=== PATIENT | male | born 1950 | race Caucasian/White ===

== ENCOUNTER → 2020-02-21 11:00 | Outpatient (BNVA) | payer MEDICARE, MEDICAID, SELFPAY | PROVIDERS: Family Provider Family Medicine; PCP Family Medicine; Visit Provider Nurse Practitioner Family | DX: I10 Essential (primary) hypertension (principal); Z68.42 Body mass index [BMI] 45.0-49.9, adult; E83.51 Hypocalcemia; E78.2 Mixed hyperlipidemia | CPT/HCPCS: 80053; 80061; 84439; 84443 ==

== ENCOUNTER → 2020-02-23 13:37 | Outpatient (BNVA) | payer MEDICARE, MEDICAID, SELFPAY | PROVIDERS: Family Provider Family Medicine; PCP Family Medicine; Visit Provider Nurse Practitioner Family | DX: E11.9 Type 2 diabetes mellitus without complications (principal); Z68.42 Body mass index [BMI] 45.0-49.9, adult | CPT/HCPCS: 83036 ==

== ENCOUNTER → 2021-03-07 15:16 | Outpatient (BNVA) | payer MEDICARE, MEDICAID, SELFPAY | PROVIDERS: Family Provider Family Medicine; PCP Family Medicine Adult Medicine; Visit Provider Family Medicine Adult Medicine | DX: Z00.00 Encounter for general adult medical examination without abnormal findings (principal); L98.499 Non-pressure chronic ulcer of skin of other sites with unspecified severity; I10 Essential (primary) hypertension; Z68.42 Body mass index [BMI] 45.0-49.9, adult; E11.9 Type 2 diabetes mellitus without complications; I25.10 Atherosclerotic heart disease of native coronary artery without angina pectoris; L40.9 Psoriasis, unspecified | CPT/HCPCS: 80053; 83036; 85025; 88304; G0103 ==

== ENCOUNTER → 2021-04-22 08:52 | Outpatient (BNVA) | payer MEDICARE, MEDICAID, SELFPAY | PROVIDERS: Family Provider Family Medicine; PCP Family Medicine Adult Medicine; Referring Provider Family Medicine Adult Medicine; Visit Provider Urology | DX: R97.20 Elevated prostate specific antigen [PSA] (principal) | CPT/HCPCS: 81003; 84153 ==

== ENCOUNTER → 2021-09-19 15:23 | Outpatient (BNVA) | payer MEDICARE, MEDICAID, SELFPAY | PROVIDERS: Family Provider Family Medicine; PCP Family Medicine Adult Medicine; Visit Provider Family Medicine Adult Medicine | DX: D49.2 Neoplasm of unspecified behavior of bone, soft tissue, and skin (principal) | CPT/HCPCS: 88304 ==

== ENCOUNTER → 2021-10-22 13:08 | Outpatient (BNVA) | payer MEDICARE, MEDICAID, SELFPAY | PROVIDERS: Family Provider Family Medicine; PCP Family Medicine Adult Medicine; Visit Provider Urology | DX: R97.20 Elevated prostate specific antigen [PSA] (principal); G43.909 Migraine, unspecified, not intractable, without status migrainosus | CPT/HCPCS: 81003; 84153 ==

== ENCOUNTER 2022-03-31 13:10 | Outpatient (CLI) | payer MEDICARE, MEDICAID, SELFPAY ==
[2022-03-31 14:18] LABS: Prostate Specific AG Urology 5.14 ng/mL (0-4)
== END 2022-03-31 13:11 | disposition home or self-care (01) ==
LOC: LAB 13:13
PROVIDERS: PCP Family Medicine Adult Medicine; Visit Provider Urology
DX: R97.20 Elevated prostate specific antigen [PSA] (principal)
CPT/HCPCS: 36415; 81003; 84153; 99213

== ENCOUNTER → 2023-02-10 14:50 | Outpatient (BNVA) | payer MEDICARE, MEDICAID, SELFPAY | PROVIDERS: PCP Family Medicine Adult Medicine; Visit Provider Family Medicine Adult Medicine | DX: E11.69 Type 2 diabetes mellitus with other specified complication (principal); E78.5 Hyperlipidemia, unspecified; E11.9 Type 2 diabetes mellitus without complications; Z13.9 Encounter for screening, unspecified; I25.10 Atherosclerotic heart disease of native coronary artery without angina pectoris | CPT/HCPCS: 80053; 83036; 84153 ==

== ENCOUNTER 2023-04-17 11:34 | Observation (INO) | payer MEDICARE, MEDICAID, SELFPAY ==
[2023-04-17] VITALS (7 sets, daily range): BP systolic 139–181; BP diastolic 82–90; PULSE 39–63; RESP 16–20; TEMP 36.5–36.9; O2SAT 94–100; BMI 34.7
--- NOTE | 2023-04-17 11:45 | ECG_ITS ---
[facility] Test Date: 2023-04-17 Pat Name: Femi Huffman Department: Room: Gender: Male [employer]: : 1950 Requested By: Ole Carrizales Order Number: [id number] Miley MD: Sabine Gomez M.D. Measurements Intervals [place] Rate: 60 P: 240 TX: 298 QRS: -69 QRSD: 130 T: 1 QT: 411 QTc: 411 Interpretive Statements SINUS RHYTHM WITH FIRST DEGREE AV BLOCK RIGHT BUNDLE BRANCH BLOCK [120+ ms QRS DURATION, UPRIGHT V1, 40+ ms S IN I/aVL/V4/V5/V6] POSSIBLE ANTERIOR MYOCARDIAL INFARCTION , PROBABLY OLD [30 ms Q WAVE IN V3/V4, OR R < 0.2 mV IN V4] INFERIOR MYOCARDIAL INFARCTION , PROBABLY OLD [40+ ms Q WAVE AND/OR ST/T ABNORMALITY IN II/aVF] Compared to ECG 11/17/2014 14:35:03 Right bundle-branch block now present Myocardial infarct finding now present Left-axis deviation no longer present T-wave abnormality no longer present Electronically Signed On 04-17-2023 18:54:44 CDT by Sabine Gomez M.D. [id number]
--- NOTE | 2023-04-17 11:45 | CT_ITS ---
WS: [id number] CT HEAD NONCONTRAST HISTORY: Symptoms of acute stroke TECHNIQUE: Contiguous axial imaging performed through the brain in 2.5 mm imaging. Bone and soft tiss ue windows. Sagittal and coronal reformats reviewed. All CT scans at [facility] use at least one of these dose optimization techniques: automated exposure control; mA and/or kV adjustment per pa tient size (includes targeted exams where dose is matched to clinical indication); or iterative recon struction. DLP: 1184.78 mGy COMPARISON: None available. No acute intracranial hemorrhage, midline shift or mass effect. Mild atrophy and small vessel ischemic disease. Focal area of very subtle loss of the [place] er differentiation involving the cortex of the posterior RIGHT frontal lobe. Ventricles: Normal size with no hydrocephalus. Paranasal sinuses: As visualized are clear. Mastoid air cells: Well pneumatized. Calvarium and scalp: Skull is intact with no soft tissue edema or swelling. IMPRESSION: 1. No acute intracranial hemorrhage or edema. 2. Mild atrophy and small vessel ischemic disease. 3. Very subtle area of decreased attenuation in the cortex of the posterior RIGHT frontal lobe. Could potentially represent an early changes of ischemia.
[2023-04-17 12:19] LABS: Basophils % 0.3 %; Eosinophils # 0.1 10^3/uL (0.0-0.8); Eosinophils % 0.7 %; Lymphocytes % 14.8 %; Mean Corpuscular HGB Conc 33.9 g/dL (30-55); Mean Corpuscular Hemoglobin 30.2 pg (27-33); Mean Corpuscular Volume 89.1 fl (82-101); Mean Platelet Volume 9.6 fL (7.4-10.4); Monocytes # 0.4 10^3/uL (0.2-0.9); Monocytes % 5.1 %; Neutrophils # 5.35 10^3/uL (1.8-7.7); Neutrophils % 78.5 %; Nucleated Red Blood Cells % 0 %; Platelet Count 201 10^3/cmm (157-399); Red Blood Count 4.94 10^6/uL (3.85-5.65); White Blood Count 6.82 10^3/uL (3.29-11.43)
[2023-04-17 12:27] LABS: INR 1.02 (0.8-1.2)
[2023-04-17 12:34] LABS: Alanine Aminotransferase 28 U/L (0-41); Albumin Level 4.4 g/dL (3.5-5.2); Alkaline Phosphatase 41 U/L (40-130); Anion Gap 14.9 (5-19); Aspartate Amino Transferase 22 U/L (0-40); Blood Urea Nitrogen 12 mg/dL (8-23); Calcium 8.6 mg/dL (8.5-10.5); Carbon Dioxide 26 mmol/L (22-29); Chloride 98 mmol/L (98-107); Globulin 2.2 g/dL (1.3-4.6); Glucose 157 mg/dL (65-115); Osmolality Calculated 283 mOsm/kg (285-295); Potassium 3.9 mmol/L (3.5-5.1); Sodium 135 mmol/L (136-145); Total Bilirubin 0.8 mg/dL (0.15-1.2); Total Protein 6.6 g/dL (6.6-8.7)
--- NOTE | 2023-04-17 13:29 | CT_ITS ---
WS: [id number] CT ANGIOGRAM CEREBRAL AND CAROTID ARTERIES HISTORY: numbness TECHNIQUE: CT angiogram is performed of the carotid and cerebral arteries. During arterial injection imaging is obtained from the skull vertex to the aortic arch in 1.25 mm imaging. Coronal and sagittal reformats are submitted. Additional multi planar reformats of the carotid and cerebral arteries are submitted, MIP imaging also reviewed. NASCET criteria utilized. All CT scans at [facility] us e at least one of these dose optimization techniques: automated exposure control; mA and/or kV adjust ment per patient size (includes targeted exams where dose is matched to clinical indication); or iter ative reconstruction. CONTRAST: Omnipaque 350; 100 mL IV. DLP: 656.63 mGy.cm COMPARISON: Noncontrast CT head 04/17/2023 Carotid Angiogram: Right carotid: Common carotid artery: Arises normally from the innominate artery. No significant plaque or stenosis. Internal carotid artery: Minimal calcified plaque. No stenosis. External carotid artery: Patent. Left carotid: Common carotid artery: Arises normally from the aorta. No significant plaque or stenosis. Internal carotid artery: Mild circumferential plaque at the bifurcation. No high-grade stenosis. External carotid artery: Patent. Right vertebral artery: Mildly dominant. Left vertebral artery: Unremarkable. Arises normally from the subclavian artery. Subclavian arteries: No stenosis or significant abnormality. Upper thorax: Normal. Thyroid gland: Subcentimeter LEFT thyroid nodule. Osseous structures: Unremarkable. CEREBRAL ANGIOGRAM: Intracranial vertebral arteries: Normal with no significant atherosclerosis. Basilar artery: No significant stenosis or occlusion. No aneurysm. Intracranial Internal carotid arteries: Mild calcified plaque through the cavernous carotid arteries. Stenosis less than 50%. Middle cerebral arteries: Focal high-grade stenosis greater than 70% involving the distal RIGHT M1 se gment. LEFT middle cerebral artery is negative. Anterior cerebral arteries and ACOM: Normal. Posterior cerebral arteries and PCOM's: Normal. Dural venous sinuses are normally enhancing. Mastoid air cells: Normal. Paranasal sinuses: Normal. Calvarium: Normal. IMPRESSION: 1. No significant cervical carotid artery stenosis. Small amount of plaque at the bifurcations. Sten osis less than 50%. 2. Focal short segment area of high-grade stenosis, greater than 70% involving the distal RIGHT M1 s egment. 3. No additional stenoses, thrombus or aneurysm.
--- NOTE | 2023-04-17 13:34 | ED_ITS ---
HPI - Weakness General: Chief complaint: Weakness Stated complaint: weakness, hand numbness Time Seen by Provider: 04/17/23 11:44 History of Present Illness: 72-year-old male with complex medical history including coronary disease, hyperlipidemia, CVA, hypertension and diabetes presented emergency room with vague complaints of left arm numbness and tingling within the past 2 to 3 days. Patient noticed increased numbness today but denies any weakness, no change in speech, no blurry vision or change in vision. Denies any chest pain, shortness of breath, cough or coughing up blood. Patient presents emergency room via EMS Associated symptoms: Denies confusion or headache(s) Review of Systems General: Reports: 10 or more systems reviewed and unremarkable except in HPI and below Neuro: Reports: numbness in extremities and sensory changes; Denies: headache(s), weakness in extremities, lack of coordination, difficulty walking, frequent falls, dizziness, vertigo, confusion, behavioral changes, Slurred speech present, difficulty communicating thoughts, seizure-like activity or involuntary movements PFSH ED PFSH: Medical History Abnormal skin growth left preauricular ear 1cm x0.75 growth, Punch Bx 09/19/2021 2mm Allergic rhinitis due to allergen CAD (coronary artery disease) CAP (community acquired pneumonia) Diabetes mellitus Dizziness and giddiness Dyslipidemia associated with type 2 diabetes mellitus Fibromyalgia Hypertension Migraine headache Obesity (BMI 30-39.9) LESLIE on CPAP Psoriasis PTSD (post-traumatic stress disorder) Sleep apnea Surgical History History of arthroscopy of right knee History of carpal tunnel release S/P wrist surgery SEVERED TENDON Family History Father , at age 58 Blood transfusion reaction hiv due to blood transfusion Mother , at age 75 Hypertension Social History Smoking and tobacco status: current every day smoker pipe Alcohol intake: current Alcohol intake frequency: few times a month Substance/Drug Use: never Marital status: Current occupational status: retired Physical Exam Const: COMMON NORMALS: no acute distress, average body habitus, patient oriented x3, no limitations, healthy appearing, alert and well nourished HENMT: COMMON NORMALS: normocephalic, atraumatic, hearing grossly normal bilaterally, external ears normal, EAC's normal, TM's normal bilaterally, Normal external nose present, Normal nasal mucous membranes and turbinates present, moist oral mucous membranes, oropharynx normal, dentition normal and gingiva normal HEAD & SCALP: normocephalic and atraumatic NOSE: Normal external nose present and Normal nasal mucous membranes and turbinates present EXTERNAL EAR: Yes external ears normal EXTERNAL AUDITORY CANAL: EAC's normal TYMPANIC MEMBRANE: TM's normal bilaterally Neck/C-Spine: COMMON NORMALS: full ROM, no lymphadenopathy, supple, no meningeal signs, no JVD, Thyroid normal and No carotid bruits THYROID: Thyroid normal Resp: COMMON NORMALS: normal respiratory effort, No retractions, No use of accessory muscles, clear to auscultation bilaterally and percussion normal AUSCULTATION: clear to auscultation bilaterally PERCUSSION: percussion normal Cardio: COMMON NORMALS: no JVD, regular rate, regular rhythm, S1 normal heart sound present, S2 normal heart sound present, No gallops present (Cardio), No clicks present (Cardio), No murmurs present (Cardio), No rub (Cardio) and Perip heral pulses 2+ throughout RATE: regular rate RHYTHM: regular rhythm HEART SOUNDS: S1 normal heart sound present and S2 normal heart sound present PERIPHERAL PULSES: Peripheral pulses 2+ throughout GI: COMMON NORMALS: Normal to inspection, nondistended, normoactive bowel sounds present, Soft to palpation, non-tender, No hepatosplenomegaly present, no masses and no bruits PALPATION: Yes Soft to palpation and Yes No hepatosplenomegaly present Neuro: MACKENZIE COMA SCALE: document GCS findings Mackenzie coma scale eye opening: Spontaneous Mackenzie coma scale verbal response: Orientated Mackenzie coma scale motor response: Obey commands Mackenzie coma scale total score: 15 COMMON NORMALS: patient oriented x3 SENSORIUM/ORIENTATION: Yes alert MENINGEAL SIGNS: Yes no meningeal signs Skin: COMMON NORMALS: no rashes or lesions noted, no wounds, turgor normal, no jaundice, no petechiae and no mottling GENERAL SKIN EXAM: no rashes or lesions noted and turgor normal Course ED course: Upon present emergency room patient had NIH score of 1 due to numbness to the face. Reevaluation(s): Reevaluation #1: Upon assessment patient made stable in acute distress. No change in NIH score. Consultations: Consultation #1: Discussed patient with the hospitalist and recommended consultation with neurologist before admission. Consultation #2: I discussed patient with neurologist and recommended aspirin and Lipitor. Vital Signs: Vital signs: Vital Signs Temperature 97.7 F 04/17/23 17:26 Pulse Rate 49 L 04/17/23 17:26 Respiratory Rate 18 04/17/23 17:26 Blood Pressure 181/87 04/17/23 17:26 Pulse Oximetry 96 04/17/23 17:26 Oxygen Delivery Me thod Room Air 04/17/23 17:26 MDM - Weakness Medical Decision Making Patient made comfortable emergency room. Patient extensive work-up including CBC, CMP, EKG, CT head and CTA head and neck. Discussed patient with hospitalist and neurologist. Patient was not evaluated by neurologist in emergency room. Was given aspirin. Differential Diagnosis Likely acute myocardial infarction, anemia, hypoglycemia, hypothyroidism, rhabdomyolysis, sepsis and dehydration Lab Data 04/17/23 12:08 04/17/23 12:08 Laboratory Results WBC 6.82 10^3/uL (3.29-11.43) 04/17/23 12:08 RBC 4.94 10^6/uL (3.85-5.65) 04/17/23 12:08 Hgb 14.90 g/dL (11.27-16.99) 04/17/23 12:08 Hct 44.0 % (37-53) 04/17/23 12:08 MCV 89.1 fl (82-101) 04/17/23 12:08 MCH 30.2 pg (27-33) 04/17/23 12:08 MCHC 33.9 g/dL (30-55) 04/17/23 12:08 RDW 12.0 % (12.1-15.1) L 04/17/23 12:08 Plt Count 201 10^3/cmm (157-399) 04/17/23 12:08 MPV 9.6 fL (7.4-10.4) 04/17/23 12:08 Neut % (Auto) 78.5 % 04/17/23 12:08 Lymph % (Auto) 14.8 % 04/17/23 12:08 [place] % (Auto) 5.1 % 04/17/23 12:08 Eos % (Auto) 0.7 % 04/17/23 12:08 Baso % (Auto) 0.3 % 04/17/23 12:08 Neut # (Auto) 5.35 10^3/uL (1.8-7.7) 04/17/23 12:08 Lymph # (Auto) 1.0 10^3/uL (0.8-4.8) 04/17/23 12:08 [place] # (Auto) 0.4 10^3/uL (0.2-0.9) 04/17/23 12:08 Eos # (Auto) 0.1 10^3/uL (0.0-0.8) 04/17/23 12:08 Baso # (Auto) 0.0 10^3/uL (0.0-0.1) 04/17/23 12:08 Nucleated RBC % (auto) 0 % 04/17/23 12:08 Nucleated RBCs # 0.0 /100WBC 04/17/23 12:08 PT 13.70 SECONDS (12.1-14.9) 04/17/23 12:08 INR 1.02 (0.8-1.2) 04/17/23 12:08 APTT 24.0 SECONDS (23.9-36.7) 04/17/23 12:08 Sodium 135 mmol/L (136-145) L 04/17/23 12:08 Potassium 3.9 mmol/L (3.5-5.1) 04/17/23 12:08 Chloride 98 mmol/L (98-107) 04/17/23 12:08 Carbon Dioxide 26 mmol/L (22-29) 04/17/23 12:08 Anion Gap 14.9 (5-19) 04/17/23 12:08 BUN 12 mg/dL (8-23) 04/17/23 12:08 Creatinine 0.8 mg/dL (0.7-1.2) 04/17/23 12:08 GFR Calculation Not Reportable 04/17/23 12:08 Glucose 157 mg/dL (65-115) H 04/17/23 12:08 Calculated Osmolality 283 mOsm/kg (285-295) L 04/17/23 12:08 Calcium 8.6 mg/dL (8.5-10.5) 04/17/23 12:08 Total Bilirubin 0.8 mg/dL (0.15-1.2) 04/17/23 12:08 AST 22 U/L (0-40) 04/17/23 12:08 ALT 28 U/L (0-41) 04/17/23 12:08 Alkaline Phosphatase 41 U/L (40-130) 04/17/23 12:08 Total Protein 6.6 g/dL (6.6-8.7) 04/17/23 12:08 Albumin 4.4 g/dL (3.5-5.2) 04/17/23 12:08 Globulin 2.2 g/dL (1.3-4.6) 04/17/23 12:08 TSH 1.05 uIU/mL (0.27-4.20) 04/17/23 12:08 XR interpretation done by ED provider, pending radiology final review EKG Data EKG 1: Interpretation: Rate of 60 with sinus rhythm with first-degree AV block. Nonspecific ST and T wave changes. ND interval 298 QTc interval 411 Discharge Plan Discharge Patient Disposition: Placed in Observation Admit Provider: Zoran Agarwal Clinical Impression: CVA (cerebrovascular accident), Numbness and tingling in left arm Coding Level of Care Code ED [employer] for Nissag Desmond
[2023-04-17] MEDS: aspirin 81 mg Chew Tablet 324 MG PO (13:42)
--- NOTE | 2023-04-17 13:56 | P.CONIM_ITS ---
Providers/Reason For Consult Consulting Physician/Specialty*: Williams Kapoor MD neurology and epilepsy Reason for Consult*: Subacute right cerebral infarction with a left face and left upper extremity numbness 04/14/2023 History of Present Illness History of Present Illness Femi Huffman is a 72 year old male with a history of left cerebral infarction and 1994 manifested as right-sided numbness involving his face arm and leg, coronary artery disease, diabetes mellitus, hypertension, dyslipidemia, and obstructive sleep apnea. According to the patient, he began experiencing nu mbness involving his left face and left upper extremity 2 to 3 days prior to presenting to the [facility] emergency room on 04/17/2023. The patient stated that he was working a lot so he ignored the symptoms. The patient stated that the symptoms continued but on the night of 04/16/2023 he went to bed around 11:30 PM. The patient stated that he woke up to go to the bathroom at 3 AM on 04/17/2023 and his left-sided numbness was unchanged. The patient stated that he went back to sleep but when he woke up at 7:30 AM on 04/17/2023 he noticed that the left-sided numbness was worse. Therefore he decided to present to the [facility] emergency room. The patient was outside of the tPA/antithrombolytic window and therefore the patient was not a candidate for tPA and no tPA was administered. NIH score =1 (for complaints of left facial numbness and left upper extremity numbness). The patient informed me he was taking a baby aspirin every morning and Zocor 20 mg every evening. Noncontrast head CT scan was obtained and revealed decreased attenuation in the right posterior frontal lobe suggestive of subacute infarction. CT angiogram of the head and neck was ordered. Results pending at the time of this dictation. Drug allergies: Demerol which resulted in nausea and vomiting Past medical history: Left cerebral infarction 1994 Coronary atherosclerotic heart disease Type 2 diabetes mellitus Posttraumatic stress disorder Obstructive sleep apnea on CPAP Hypertension Dyslipidemia Obesity Current medications: Aspirin 81 mg p.o. daily Elavil 10 mg p.o. nightly Norvasc 5 mg p.o. daily Vitamin D3 400 international units p.o. daily Fioricet 1 p.o. every 4 hours as needed headache Prozac 20 mg p.o. daily Hydrochlorothiazide 50 mg p.o. daily Lisinopril 40 mg p.o. daily Fluticasone nasal spray 50 mcg per accusation 2 sprays twice a day Loratadine 10 mg p.o. daily Metformin 500 mg p.o. twice daily Metoprolol 100 mg p.o. nightly Multivitamin 1 p.o. daily Nitroglycerin 0.4 mg sublingual as needed Fish oil 1 capsule daily Zocor 20 mg p.o. daily Tamsulosin 0.4 mg p.o. daily Triamcinolone topical cream twice a day for rash Habits: Unknown Review of Systems General: Reports: 10 or more systems reviewed and unremarkable except in HPI and below Medications/Allergies Home Medications Medication Instructions Recorded Confirmed Last Taken Type cholecalciferol (vitamin D3) 10 10 mcg PO DAILY 02/10/20 04/17/23 04/17/23 H istory mcg (400 unit) capsule blood-glucose meter #1 ea 02/23/20 04/17/23 Unknown Rx fluoxetine 20 mg capsule (Prozac) 20 mg PO DAILY #90 caps 10/30/22 04/17/23 04/17/23 Rx fluticasone propionate 50 2 spray intranasal BID PRN nasal 10/30/22 04/17/23 Unknown Rx mcg/actuation nasal congestion #48 grams spray,suspension nitroglycerin 0.4 mg sublingual 0.4 mg sublingual Q5M PRN chest 10/30/22 04/17/23 Unknown Rx tablet pain 90 days #20 tabs amitriptyline 10 mg tablet 10 mg PO QPM 04/17/23 04/17/23 04/17/23 History amlodipine 10 mg tablet 5 mg PO DAILY 04/17/23 04/17/23 04/17/23 History aspirin 81 mg tablet,delayed 81 mg PO DAILY 04/17/23 04/17/23 04/17/23 History release (Adult Low Dose Aspirin) yjmhedvhva-srsqlaaixmtsi-cyfxrqwo 1 cap PO Q4H PRN migraine headache 04/17/23 04/17/23 Unknown History 50 mg-300 mg-40 mg capsule pain (Fioricet) epinephrine 0.3 mg/0.3 mL 0.3 mg IM Q15M PRN Allergic 04/17/23 04/17/23 Unknown History injection, auto-injector Reaction hydrochlorothiazide 25 mg tablet 50 mg PO DAILY 04/17/23 04/17/23 04/17/23 History lisinopril 40 mg tablet 40 mg PO DAILY 04/17/23 04/17/23 04/17/23 History loratadine 10 mg tablet 10 mg PO DAILY 04/17/23 04/17/23 04/17/23 History metformin 500 mg tablet 500 mg PO BID 04/17/23 04/17/23 04/17/23 History metoprolol tartrate 100 mg tablet 100 mg PO .at HS 04/17/23 04/17/23 04/17/23 History multivitamin 1 tab PO DAILY 04/17/23 04/17/23 04/17/23 History omega 3-hjl-std-fish oil 300 1 cap PO DAILY 04/17/23 04/17/23 04/17/23 History mg-1,000 mg capsule (Fish Oil) simvastatin 20 mg tablet 20 mg PO BEDTIME 04/17/23 04/17/23 04/16/23 History tamsulosin 0.4 mg capsule 0.4 mg PO DAILY 04/17/23 04/17/23 04/17/23 History triamcinolone acetonide 0.1 % 1 applic topical BID PRN Rash 04/17/23 04/17/23 Unknown History topical cream Allergies Allergy/AdvReac Type Severity Reaction Status Date / Time meperidine [From Demerol] AdvReac Intermediate ADR-Vomitin Verified 02/10/23 14:04 g PFSH Acute PFSH: Medical History (Updated 04/17/23 @ 14:18 by Williams Kapoor MD) Abnormal skin growth left preauricular ear 1cm x0.75 growth, Punch Bx 09/19/2021 2mm Allergic rhinitis due to allergen CAD (coronary artery disease) CAP (community acquired pneumonia) Diabetes mellitus Dizziness and giddiness Dyslipidemia associated with type 2 diabetes mellitus Fibromyalgia Hypertension Migraine headache Obesity (BMI 30-39.9) LESLIE on CPAP Psoriasis PTSD (post-traumatic stress disorder) Sleep apnea Surgical History History of arthroscopy of right knee History of carpal tunnel release S/P wrist surgery SEVERED TENDON Family History Father , at age 58 Blood transfusion reaction hiv due to blood transfusion Mother , at age 75 Hypertension Social History Smoking and tobacco status: current every day smoker pipe Alcohol intake: current Alcohol intake frequency: few times a month Substance/Drug Use: never Marital status: Current occupational status: retired Vitals/I&O/Wt Last Vital Signs Temp 98.4 F 04/17/23 11:38 Pulse 63 04/17/23 11:38 Resp 18 04/17/23 11:38 BP 176/89 04/17/23 11:38 Pulse Ox 96 04/17/23 11:38 O2 Del Method Room Air 04/17/23 11:38 Weight last 48 hrs Weight 270 lb Physical Exam Narrative: NIH score =1 (secondary to reports of left facial numbness and left arm numbness) The patient is alert and oriented x3. Speech fluent. Head normocephalic. Neck supple. Cranial nerves II through XII intact although patient reported numbness in the upper face in a V1 distribution) pupils 4 mm. Pupils equal round and reactive to light and accommodation. Extraocular movements in tact. There were no nystagmus. Visual elizondo full via confrontation. Motor testing 5/5 bilaterally. There was no drift. Ivxawh-wkpz-uibdgx revealed no ataxia. Lower extremities revealed no ataxia. Deep tendon reflexes 2+ bilaterally. Plantar responses flexor bilaterally. There was no clonus. Sensory examination was intact to gross modalities. Throat clear. Lungs clear. Heart regular rhythm and rate. Abdomen soft bowel sounds positive extremities were negative for club naomi or cyanosis. Data 04/17/23 12:08 04/17/23 12:08 A&P Assessment and plan (1) Stroke (cerebrum): Impression: 1. Right posterior frontal lobe infarction, subacute manifested as left facial numbness and left upper extremity numbness which began 2 to 3 days prior to presenting to [facility] emergency room on 04/17/2023 2. History of remote left cerebral infarction manifested as right-sided numbness in 1994 3. Hypertension 4. Coronary atherosclerotic heart disease 5. Type 2 diabetes mellitus 6. Dyslipidemia 7. Obstructive sleep apnea, reported to be on CPAP 8. Obesity 9. Posttraumatic stress disorder Plan: 1. Increase Zocor to 40 mg p.o. daily 2. Increase aspirin to 325 mg p.o. every morning with food first dose today 3. Stroke work-up and labs per NIH protocol 4. Agree with obtaining CT angiogram of the head and neck to assess for intracranial stenosis 5. Recommend cardiac evaluation to assess for embolic source for strokes 6. Neurochecks per NIH stroke protocol Consult Attestations Medical Necessity Statement: The patient was evaluated by neurology for subacute right frontal lobe infarction with complaints of left face and left arm numbness and abnormal head CT suggestive of subacute infarction in the right posterior frontal lobe on noncontrast head CT. Coding Level of Care Code 95310 Diagnoses Stroke (cerebrum) I63.9 Time Spent (min) 30
[2023-04-17] MEDS: iohexol 350 mg/mL 500 mL Btl (per mL) IV (14:33)
--- NOTE | 2023-04-17 17:18 | P.HP_ITS ---
Providers/Chief Complaint Admitting Physician: Zoran Agarwal Chief Complaint: weakness, hand numbness History of Present Illness Pleasant 72-year-old gentleman with a history of suspected CVA back in 1994 with right-sided weakness and loss of dexterity, numbness, mild aphasia, some mild cognitive defect which with time he was able to work through with therapy, with history of DM 2, HTN, HLD, and a past cigarette smoker but had quit, has been smoking pipe, does have history of psoriasis, history of SLE, although states disease has been inactive, in the past on steroids, but has not had symptoms or follows with rheumatology for a while after weaning off steroids. Presented to ER due to about 3 days duration diminished sensation, CT head in ER with very subtle area of decreased attenuation in the cortex of the posterior right frontal lobe. Could potentially present early changes of ischemia. On assessment in ER not found to be candidate for tPA, NIH score is low, also outside the window of intervention. Review of Systems Const: Denies: fever(s), chills, body aches or malaise Eyes: Denies: change in vision ENMT: Denies: throat pain, oral sores or ear or mastoid pain Card: Denies: chest pain, edema, pre-syncope or dyspnea on exertion Resp: Denies: dyspnea, productive cough, change in phlegm color or hemoptysis GI: Denies: abdominal pain, nausea, vomiting, diarrhea, constipation, hematochezia or melena : Denies: flank pain, difficulty urinating, urinary frequency or hematuria Musc: Denies: back pain, joint swelling or joint redness Skin/Breast: Denies: rash or new lesions Neuro: Reports: sensory changes (LUE); Denies: headache(s), weakness in extremities, lack of coordination, difficulty walking, vertigo, confusion, behavioral changes or Slurred speech present Medications/Allergies Home Medications Medication Instructions Recorded Confirmed Last Taken Type cholecalciferol (vitamin D3) 10 10 mcg PO DAILY 02/10/20 04/17/23 04/17/23 History mcg (400 unit) capsule blood-glucose meter #1 ea 02/23/20 04/17/23 Unknown Rx fluoxetine 20 mg capsule (Prozac) 20 mg PO DAILY #90 caps 10/30/22 04/17/23 04/17/23 Rx fluticasone propionate 50 2 spray intranasal BID PRN nasal 10/30/22 04/17/23 Unknown Rx mcg/actuation nasal congestion #48 grams spray,suspension nitroglycerin 0.4 mg sublingual 0.4 mg sublingual Q5M PRN chest 10/30/22 04/17/23 Unknown Rx tablet pain 90 days #20 tabs amitriptyline 10 mg tablet 10 mg PO QPM 04/17/23 04/17/23 04/17/23 History amlodipine 10 mg tablet 5 mg PO DAILY 04/17/23 04/17/23 04/17/23 History aspirin 81 mg tablet,delayed 81 mg PO DAILY 04/17/23 04/17/23 04/17/23 History release (Adult Low Dose Aspirin) [id number] 1 cap PO Q4H PRN migraine headache 04/17/23 04/17/23 Unknown History 50 mg-300 mg-40 mg capsule pain (Fioricet) epinephrine 0.3 mg/0.3 mL 0.3 mg IM Q15M PRN Allergic 04/17/23 04/17/23 Unknown History injection, auto-injector Reaction hydrochlorothiazide 25 mg tablet 50 mg PO DAILY 04/17/23 04/17/23 04/17/23 History lisinopril 40 mg tablet 40 mg PO DAILY 04/17/23 04/17/23 04/17/23 History loratadine 10 mg tablet 10 mg PO DAILY 04/17/23 04/17/23 04/17/23 History metformin 500 mg tablet 500 mg PO BID 04/17/23 04/17/23 04/17/23 History metoprolol tartrate 100 mg tablet 100 mg PO .at HS 04/17/23 04/17/23 04/17/23 History multivitamin 1 tab PO DAILY 04/17/23 04/17/23 04/17/23 History omega 9-otz-oyc-fish oil 300 1 cap PO DAILY 04/17/23 04/17/23 04/17/23 History mg-1,000 mg capsule (Fish Oil) simvastatin 20 mg tablet 20 mg PO BEDTIME 04/17/23 04/17/23 04/16/23 History tamsulosin 0.4 mg capsule 0.4 mg PO DAILY 04/17/23 04/17/23 04/17/23 History triamcinolone acetonide 0.1 % 1 applic topical BID PRN Rash 04/17/23 04/17/23 Unknown History topical cream Allergies Allergy/AdvReac Type Severity Reaction Status Date / Time meperidine [From Demerol] AdvReac Intermediate ADR-Vomitin Verified 02/10/23 14:04 g PFSH Acute PFSH: Medical History Abnormal skin growth left preauricular ear 1cm x0.75 growth, Punch Bx 09/19/2021 2mm Allergic rhinitis due to allergen CAD (coronary artery disease) CAP (community acquired pneumonia) Diabetes mellitus Dizziness and giddiness Dyslipidemia associated with type 2 diabetes mellitus Fibromyalgia Hypertension Migraine headache Obesity (BMI 30-39.9) LESLIE on CPAP Psoriasis PTSD (post-traumatic stress disorder) Sleep apnea Surgical History History of arthroscopy of right knee History of carpal tunnel release S/P wrist surgery SEVERED TENDON Family History Father , at age 58 Blood transfusion reaction hiv due to blood transfusion Mother , at age 75 Hypertension Social History Smoking and tobacco status: current every day smoker pipe Alcohol intake: current Alcohol intake frequency: few times a month Substance/Drug Use: never Marital status: Current occupational status: retired Vitals/I&O/Wt Last Vital Signs Temp 98.4 F 04/17/23 11:38 Pulse 54 L 04/17/23 16:04 Resp 16 04/17/23 16:04 BP 154/90 04/17/23 16:04 Pulse Ox 100 04/17/23 16:04 O2 Del Method Room Air 04/17/23 16:04 Weight last 48 hrs Weight 122.47 kg Physical Exam Const: COMMON NORMALS: patient oriented x3 and alert GENERAL APPEARANCE: c ooperative ORIENTATION/CONSCIOUSNESS: Yes awake HENMT: COMMON NORMALS: oropharynx normal Neck/C-Spine: COMMON NORMALS: no JVD Resp: COMMON NORMALS: normal respiratory effort and clear to auscultation bilaterally AUSCULTATION: clear to auscultation bilaterally Cardio: COMMON NORMALS: no JVD, regular rhythm, S1 normal heart sound present, S2 normal heart sound present and No murmurs present (Cardio) RHYTHM: regular rhythm HEART SOUNDS: S1 normal heart sound present and S2 normal heart sound present GI: COMMON NORMALS: Normal to inspection, nondistended, normoactive bowel sounds present, Soft to palpation and non-tender PALPATION: Yes Soft to palpation Extremity: COMMON NORMALS: no joint enlargement and no pedal edema Neuro: COMMON NORMALS: patient oriented x3 and moves all extremities SENSORIUM/ORIENTATION: Yes alert OTHER: Awake, alert, readily following directions. No noted facial droop. No trouble with tracking. Visual elizondo full to confrontation. No visual extinction. Mildly diminished sensation left upper extremity. No sensory extinction. No upper or lower extremity drift. No difficulty with FNF. Skin: COMMON NORMALS: no rashes or lesions noted GENERAL SKIN EXAM: no rashes or lesions noted Data 04/17/23 12:08 04/17/23 12:08 A&P Assessment and plan (1) Stroke (cerebrum): New subacute CVA. Discussed with ER physician, discussed with neurology, appreciate consultation. Neurology and ER physician documentation reviewed. Discussed with patient risk factors for CVA. Discussed permissive hypertension at this time. Continue aspirin 325 mg as per recommendation. Discussed with neurology also starting Plavix for 21 days, discussed with patient. Monitor for signs of bleeding/hemorrhagic transformation. Upgrade statin to high intensity as discussed with patient. Discussed with him small stroke may be a harbinger of larger on sometimes. Reinforced with him to seek medical attention immediately in case of any worsening or new concerning symptoms. CTA has been requested. Reviewed head CT. Reviewed chemistry, coagulation profile, CBC. Additional assessment with monitoring for A-fib with telemetry. Assess also with bubble TTE study. Discussed with him long-term will benefit from optimization of hypertension control. Check A1c. PT, OT, ST evaluation. Risk factors of CVA does include psoriasis, SLE, although not active disease, LESLIE, DM 2, HTN, HLD HLD. Discussed with him regarding smoking cessation, he has quit smoking cigarettes, although still smokes pipe. Plan Bradycardia: Noted incidentally. Heart rates in the low 50s. RBBB on EKG. Monitor on telemetry. Check TSH. DM2: A1c, Accu-Cheks requested. Sliding-scale insulin. HLD: Continue statin HTN: Permissive hypertension at this time, until blood pressures. Hold antihypertensives. Smoking tobacco: Smokes pipe, discussed with him although may not directly inhale smoking to lungs, still is breathing air-filled a small, may still increases risk of stroke. Recommended quit. He verbalized understanding. Discussed smoking station for 4 minutes. Will provide nicotine replacement as needed. Continue to encourage cessation. LESLIE: Nightly CPAP CAD PTSD: Continue amitriptyline, fluoxetine Other medical problems Attestations Medical Necessity Statement*: Place in observation for additional assessment management following CVA. Diagnoses Stroke (cerebrum) I63.9
[2023-04-17 17:26] LABS: Glucose Point of Care 114 mg/dL (70-110)
[2023-04-17 18:41] LABS: Thyroid Stimulating Hormone 1.05 uIU/mL (0.27-4.20)
[2023-04-17 20:38] LABS: Glucose Point of Care 181 mg/dL (70-110)
[2023-04-17] MEDS: atorvastatin 40 mg Tablet PO (20:59)
[2023-04-17] MEDS: insulin lispro 100 unit/1 mL SUBCUT (20:59)
[2023-04-18] VITALS (8 sets, daily range): BP systolic 154–165; BP diastolic 84–95; PULSE 56–72; RESP 18; TEMP 36.3–36.7; O2SAT 96–100
[2023-04-18 05:29] LABS: Estmated Average Glucose 137; Hemoglobin A1C 6.4 % (4.0-6.0)
[2023-04-18 05:37] LABS: Chol HDL Ratio 2.56 mg/dL (1.0-5.00); Cholesterol 110 mg/dL (0-200); HDL Cholesterol 43 mg/dL (60-100); LDL Cholesterol Calculated 39 mg/dL (50-129); LDL HDL Ratio 0.91 RATIO (0.00-3.22); Triglycerides 138 mg/dL (0-150)
--- NOTE | 2023-04-18 06:00 | USCV_ITS ---
Femi Huffman Age: 72 Gender: M : 1950 Exam Date: 04/18/2023 06:27 Ordering Phys: Zoran Agarwal MD Technologist: Jim Gruber Exam Location: [facility] [place] Indication: CVA BP: 154 / 84 HR: 52 Rhythm: Sinus Technical Quality: Adequate MEASUREMENTS (Male / Female) Normal Values 2D ECHO LVOT Diameter 2.0 cm LV Ejection Fraction MOD 2C 69.8 % LV Ejection Fraction 2C AL 70.9 % LA Diameter 4.0 cm LA Width 3.2 cm LA Height 4.6 cm RA Width 4.1 cm RA Height 3.7 cm Aorta at Sinotubular Diameter 2.3 cm M-MODE Aortic Annulus Diameter 3.1 cm LA Ao Ratio MM 1.5 MV E Point Septal Separation 0.7 cm DOPPLER AV Peak Velocity 147.7 cm/s LVOT Peak Velocity 107.0 cm/s AV Area Cont Eq vti 2.9 cm squared AV Area Cont Eq pk 2.4 cm squared MV Peak Velocity 107.0 cm/s MV Area PHT 3.9 cm squared Mitral E to A Ratio 0.9 MV E' Velocity 49.5 cm/s Mitral E to MV E' Ratio 8.0 Mitral E to LV E' Lateral Ratio 7.1 Mitral E to LV E' Septal Ratio 9.2 TR Peak Velocity 160.9 cm/s TR Peak Gradient 10.4 mmHg TR Mean Velocity 108.5 cm/s TR Mean Gradient 5.4 mmHg TR Velocity Time Integral 33.9 cm Right Atrial Pressure 8.0 mmHg Pulmonary Artery Systolic Pressu 18.4 mmHg PV Peak Velocity 121.0 cm/s RV Acceleration Time 0.1 s RV Ejection Time 0.3 s RV AcT/ET 0.4 FINDINGS Left Ventricle Normal left ventricular size, systolic function and wall thickness, with no regional wall motion abnormalities. Left ventricular ejection fraction is estimated at 65 %. Normal diastolic function. Right Ventricle Normal right ventricular size and systolic function. Right Atrium Normal right atrial size. No evidence of intracardiac shunt based on this study. Left Atrium Normal left atrial size. Mitral Valve Structurally normal mitral valve. No mitral valve stenosis. No mitral valve regurgitation. Aortic Valve Structurally normal trileaflet aortic valve. No aortic valve stenosis. No aortic valve regurgitation. Tricuspid Valve Structurally normal tricuspid valve. Pulmonic Valve Pulmonic valve not well visualized. No pulmonary valve stenosis. Pericardium No pericardial effusion. Aorta Normal size aortic root and proximal ascending aorta. IVC Inferior vena cava not visualized. CONCLUSIONS 1. Normal left ventricular size, systolic function and wall thickness, with no regional wall motion abnormalities. Left ventricular ejection fraction is estimated at 65 %. Normal diastolic function. 2. No evidence of intracardiac shunt based on this study. 3. No prior similar studies to compare. Sabine Gomez MD (Electronically Signed) Final Date: 18 April 2023 12:43 S
[2023-04-18] MEDS: tamsulosin 0.4 mg Capsule PO (08:37)
[2023-04-18] MEDS: fluoxetine 20 mg Capsule PO (08:37)
[2023-04-18] MEDS: clopidogrel 75 mg Tablet PO (08:37)
[2023-04-18] MEDS: aspirin 325 mg Tablet PO (08:37)
[2023-04-18 08:42] LABS: Glucose Point of Care 122 mg/dL (70-110)
[2023-04-18 10:51] LABS: Glucose Point of Care 141 mg/dL (70-110)
--- NOTE | 2023-04-18 11:43 | PC.OT ---
OT evalutaion completed, services not indicated at this time.
[2023-04-18 12:19] LABS: Adenovirus Not Detected (NOT DETECT); Chlamydia Pneumoniae Not Detected (NOT DETECT); Coronavirus 229E,HKU1,NL63,OC4 Not Detected (NOT DETECT); Human Metapneumovirus Not Detected (NOT DETECT); Human Rhinovirus/Enterovirus Not Detected (NOT DETECT); Influenza A Not Detected (NOT DETECT); Influenza A H1 Not Detected (NOT DETECT); Influenza A H1-2009 Not Detected (NOT DETECT); Influenza A H3 Not Detected (NOT DETECT); Influenza B Not Detected (NOT DETECT); Mycoplasma Pneumoniae Not Detected (NOT DETECT); Parainfluenza Virus Type 1 Not Detected (NOT DETECT); Parainfluenza Virus Type 2 Not Detected (NOT DETECT); Parainfluenza Virus Type 3 Not Detected (NOT DETECT); Parainfluenza Virus Type 4 Not Detected (NOT DETECT); Respiratory Syncytial Virus A Not Detected (NOT DETECT); Respiratory Syncytial Virus B Not Detected (NOT DETECT); SARS-COV-2 Not Detected (NOT DETECT)
[2023-04-18] MEDS: insulin lispro 100 unit/1 mL SUBCUT (12:29)
--- NOTE | 2023-04-18 12:57 | PM.DCS ---
Discharge Providers Date of Admission: 04/17/23 13:31 Date of Discharge: April 18, 2023 Attending Provider at Admission: Zoran Agarwal Attending Provider at Discharge: Zoran Agarwal Diagnoses at Discharge Discharge Diagnosis (1) Stroke (cerebrum): Status: Acute Reason for Visit Reason for Visit: weakness, hand numbness Brief History: Pleasant 72-year-old gentleman with a history of suspected CVA back in 1994 with right-sided weakness and loss of dexterity, numbness, mild aphasia, some mild cognitive defect which with time he was able to work through with therapy, with history of DM 2, HTN, HLD, and a past cigarette smoker but had quit, has been smoking pipe, does have history of psoriasis, history of SLE, although states disease has been inactive, in the past on steroids, but has not had symptoms or follows with rheumatology for a while after weaning off steroids. Presented to ER due to about 3 days duration diminished sensation, CT head in ER with very subtle area of decreased attenuation in the cortex of the posterior right frontal lobe.? Could potentially present early changes of ischemia.? On assessment in ER not found to be candidate for tPA, NIH score is low, also outside the window of intervention. Hospital Course Hospital Course CT angiogram showed no coronary disease, small amount of plaque at bifurcations, stenosis less than 50%, but showed intracranial high-grade stenosis of focal short segment greater than 70% in the distal right M1, with suspected culprit for his stroke seen on CT head. Discussed with him optimization of risk factors of cardiovascular disease, increase statin to high intensity dose with atorvastatin 80 mg, continuation of dual antiplatelet agent aspirin plus Plavix for at least 21 days at current time, follow-up with neurology for additional recommendation and reassessment. He was assessed with TTE bubble study which showed no intracardiac shunt. No A-fib noted in the hospital, however, with sleep apnea, obesity, risk factors for atrial fibrillation, recurrent stroke, as per discussion with neurology additionally recommended to have curriculum and assessment director at discharge for which she is being referred for 3 weeks of monitoring to assess for any occult A-fib. A1c noted 6.4. Permissive hypertension in the hospital, discussed with him otherwise to monitor blood pressure 3 times daily and target blood pressure 120/80. Discussed with him also discontinuation of pipe/tobacco smoking. Heart healthy diet and he is encouraged to exercise. Please discuss with him consideration of options to help with weight loss. Continue to optimize cardiovascular risk factors. He was assessed by ST, PT, OT. Reinforced with him in case of any additional worsening or new concerning/neurologic/strokelike symptoms to seek medical attention immediately due to limited time window for intervention if indicated. Physical Exam Narrative: Reports he feels a little bit out of place being in the hospital, different surroundings and people, otherwise no change in symptoms, some improvement in loss of sensation in left upper extremity now down to only fingers of the left hand. Const: COMMON NORMALS: patient oriented x3 and alert GENERAL APPEARANCE: cooperative ORIENTATION/CONSCIOUSNESS: Yes awake HENMT: COMMON NORMALS: oropharynx normal Neck/C-Spine: COMMON NORMALS: no JVD Resp: COMMON NORMALS: normal respiratory effort and clear to auscultation bilaterally AUSCULTATION: clear to auscultation bilaterally Cardio: COMMON NORMALS: no JVD, regular rhythm, S1 normal heart sound present, S2 normal heart sound present and No murmurs present (Cardio) RHYTHM: regular rhythm HEART SOUNDS: S1 normal heart sound present and S2 normal heart sound present GI: COMMON NORMALS: Normal to inspection, nondistended, normoactive bowel sounds present, Soft to palpation and non-tender PALPATION: Yes Soft to palpation Extremity: COMMON NORMALS: no joint enlargement and no pedal edema Neuro: COMMON NORMALS: patient oriented x3 and moves all extremities SENSORIUM/ORIENTATION: Yes alert OTHER: Awake, alert, readily following directions. Minimal chronic aphasia. No noted facial droop. No trouble with tracking. Visual elizondo full to confrontation. No visual extinction. Improvement in mildly diminished sensation left upper extremity, now only in fingers. No sensory extinction. No upper or lower extremity drift. No difficulty with FNF. Skin: COMMON NORMALS: no rashes or lesions noted GENERAL SKIN EXAM: no rashes or lesions noted Discharge Data Studies Completed and Pending Completed Studies During Hospitalization Category Date Time Status CT head thrombolytic [id number] Stat Cat Scan 04/17/23 11:45 Completed CTA head neck [CT angio headneck* [id number]] Stat Cat Scan 04/17/23 13:29 Completed CV. echo w/w bubble cont [id number] Routine Ultrasound 04/18/23 06:00 Completed Laboratory Results WBC 6.82 10^3/uL (3.29-11.43) 04/17/23 12:08 RBC 4.94 10^6/uL (3.85-5.65) 04/17/23 12:08 Hgb 14.90 g/dL (11.27-16.99) 04/17/23 12:08 Hct 44.0 % (37-53) 04/17/23 12:08 MCV 89.1 fl (82-101) 04/17/23 12:08 MCH 30.2 pg (27-33) 04/17/23 12:08 MCHC 33.9 g/dL (30-55) 04/17/23 12:08 RDW 12.0 % (12.1-15.1) L 04/17/23 12:08 Plt Count 201 10^3/cmm (157-399) 04/17/23 12:08 MPV 9.6 fL (7.4-10.4) 04/17/23 12:08 Neut % (Auto) 78.5 % 04/17/23 12:08 Lymph % (Auto) 14.8 % 04/17/23 12:08 Eddy % (Auto) 5.1 % 04/17/23 12:08 Eos % (Auto) 0.7 % 04/17/23 12:08 Baso % (Auto) 0.3 % 04/17/23 12:08 Neut # (Auto) 5.35 10^3/uL (1.8-7.7) 04/17/23 12:08 Lymph # (Auto) 1.0 10^3/uL (0.8-4.8) 04/17/23 12:08 Eddy # (Auto) 0.4 10^3/uL (0.2-0.9) 04/17/23 12:08 Eos # (Auto) 0.1 10^3/uL (0.0-0.8) 04/17/23 12:08 Baso # (Auto) 0.0 10^3/uL (0.0-0.1) 04/17/23 12:08 Nucleated RBC % (auto) 0 % 04/17/23 12:08 Nucleated RBCs # 0.0 /100WBC 04/17/23 12:08 PT 13.70 SECONDS (12.1-14.9) 04/17/23 12:08 INR 1.02 (0.8-1.2) 04/17/23 12:08 APTT 24.0 SECONDS (23.9-36.7) 04/17/23 12:08 Sodium 135 mmol/L (136-145) L 04/17/23 12:08 Potassium 3.9 mmol/L (3.5-5.1) 04/17/23 12:08 Chloride 98 mmol/L (98-107) 04/17/23 12:08 Carbon Dioxide 26 mmol/L (22-29) 04/17/23 12:08 Anion Gap 14.9 (5-19) 04/17/23 12:08 BUN 12 mg/dL (8-23) 04/17/23 12:08 Creatinine 0.8 mg/dL (0.7-1.2) 04/17/23 12:08 GFR Calculation Not Reportable 04/17/23 12:08 Glucose 157 mg/dL (65-115) H 04/17/23 12:08 POC Glucose 141 mg/dL (70-110) H 04/18/23 10:39 Estimat Average Glucose 137 04/18/23 05:03 Hemoglobin A1c 6.4 % (4.0-6.0) H 04/18/23 05:03 Calculated Osmolality 283 mOsm/kg (285-295) L 04/17/23 12:08 Calcium 8.6 mg/dL (8.5-10.5) 04/17/23 12:08 Total Bilirubin 0.8 mg/dL (0.15-1.2) 04/17/23 12:08 AST 22 U/L (0-40) 04/17/23 12:08 ALT 28 U/L (0-41) 04/17/23 12:08 Alkaline Phosphatase 41 U/L (40-130) 04/17/23 12:08 Total Protein 6.6 g/dL (6.6-8.7) 04/17/23 12:08 Albumin 4.4 g/dL (3.5-5.2) 04/17/23 12:08 Globulin 2.2 g/dL (1.3-4.6) 04/17/23 12:08 Triglycerides 138 mg/dL (0-150) 04/18/23 05:03 Cholesterol 110 mg/dL (0-200) 04/18/23 05:03 LDL Cholesterol, Calc 39 mg/dL (50-129) L 04/18/23 05:03 HDL Cholesterol 43 mg/dL (60-100) L 04/18/23 05:03 LDL/HDL Ratio 0.91 RATIO (0.00-3.22) 04/18/23 05:03 Cholesterol/HDL Ratio 2.56 mg/dL (1.0-5.00) 04/18/23 05:03 TSH 1.05 uIU/mL (0.27-4.20) 04/17/23 12:08 Coronavirus 229E (PCR) Not detected (NOT DETECT) 04/18/23 10:02 SARS-CoV-2 (PCR) Not detected (NOT DETECT) 04/18/23 10:02 Vitals Last Vital Signs Temp 97.4 F L 04/18/23 11:44 Pulse 70 04/18/23 11:44 Resp 18 04/18/23 11:44 BP 165/95 04/18/23 11:44 Pulse Ox 97 04/18/23 11:44 O2 Del Method Room Air 04/18/23 11:44 FiO2 21 04/17/23 21:21 Discharge Plan Discharge Patient Disposition: Home Condition: Stable Prescriptions: New clopidogrel 75 mg Tablet 75 mg PO DAILY Qty: 90 0RF atorvastatin 40 mg Tablet 80 mg PO BEDTIME Qty: 180 0RF Continued (DME) blood-glucose meter Kit See Rx Instructions .ROUTE .MEDSUPPLY Qty: 1 0RF Rx Instructions: As directed cholecalciferol (vitamin D3) 10 mcg (400 unit) capsule 10 mcg PO DAILY fluoxetine [Prozac] 20 mg capsule 20 mg PO DAILY Qty: 90 3RF nitroglycerin 0.4 mg tablet, sublingual 0.4 mg SUBLINGUAL Q5M PRN (Reason: chest pain) 90 Days Qty: 20 3RF Rx Instructions: do not exceed 3 doses per episode, refill q 3 months 340 B medication fluticasone propionate 50 mcg/actuation spray,suspension 2 spray intranasal BID PRN (Reason: nasal congestion) Qty: 48 3RF Fish Oil 300-1,000 mg Capsule 1 cap PO DAILY multivitamin Tablet 1 tab PO DAILY Rx Instructions: 340 B medication metformin 500 mg tablet 500 mg PO BID Rx Instructions: 340 B medication metoprolol tartrate 100 mg tablet 100 mg PO .at HS Rx Instructions: 340 B medication Adult Low Dose Aspirin 81 mg tablet,delayed release (DR/EC) 81 mg PO DAILY Rx Instructions: 340 B medication triamcinolone acetonide 0.1 % cream 1 applic topical BID PRN (Reason: Rash) Rx Instructions: Use only maximum of two weeks out of each month 340 B medication tamsulosin 0.4 mg capsule 0.4 mg PO DAILY amitriptyline 10 mg tablet 10 mg PO QPM amlodipine 10 mg tablet 5 mg PO DAILY hydrochlorothiazide 25 mg tablet 50 mg PO DAILY Rx Instructions: 340 B medication epinephrine 0.3 mg/0.3 mL auto-injector 0.3 mg IM Q15M PRN (Reason: Allergic Reaction) Rx Instructions: for 2 doses 340 B medication lisinopril 40 mg tablet 40 mg PO DAILY loratadine 10 mg tablet 10 mg PO DAILY Fioricet 50-300-40 mg capsule 1 cap PO Q4H PRN (Reason: migraine headache pain) Rx Instructions: 340 B medication Discontinued simvastatin 20 mg tablet 20 mg PO BEDTIME Discharge Orders: Discharge Order (Routine); Ordered 04/18/23 Ordered By: Zoran Agarwal Other Ambulatory Orders: MCT/Event Monitor 21 Days (Routine) Timeframe: 2 Days Facility: [facility] - Location: Radiology Ordered By: Zoran Agarwal Referrals: Williams Kapoor MD [Physician] - 2 weeks Ryne Steel MD [Physician] - 4-7 days Discharge Diet: Cardiac and Diabetic Discharge Activity: As per PT/OT instructions Patient Instructions: Aspirin (By mouth), Atorvastatin (By mouth), Clopidogrel (By mouth), Heart Healthy Diet (GEN), Ischemic Stroke (GEN), Hypertension (GEN), Prevent Cardiovascular Disease (GEN) Activity Restrictions/Additional Instructions: Please follow-up with your primary provider as well as with neurology for reassessment after stroke. Continue to optimize risk factors of stroke including elevated blood pressure, please stop smoking, diabetes. Please maintain heart healthy diet. Discuss with your primary doctor options to help you lose weight. Exercise with moderate intensity of 150 minutes/week. Monitor blood pressure 3 times daily, write down values to bring to appointment. Target blood pressure 120/80. Maintain cardiac, diabetic diet. Continue aspirin, Plavix, your cholesterol medication is also increased to high intensity with noted focal short segment high-grade intracranial artery stenosis in the distal right M1 segment. You are also referred for curriculum and assessment director for 3 weeks on recommendation of the neurologist to additionally assess for any silent episodes of atrial fibrillation. Continue CPAP for sleep apnea. Discharge Attestations Time Spent in Discharge Care*: greater than 30 min Quality Metrics Clinical Quality Measures [ No reported AMI, CVA or VTE this stay] Coding Level of Care Code Acute Code for [facility] Diagnoses Stroke (cerebrum) I63.9
[2023-04-18 16:27] LABS: Glucose Point of Care 115 mg/dL (70-110)
== END 2023-04-18 17:24 | disposition home or self-care (01) ==
LOC: ER 14:03 → MEDSURG 15:54
PROVIDERS: Admitting Provider Internal Medicine; Emergency Provider Family Medicine; Visit Provider Internal Medicine
DX: I63.9 Cerebral infarction, unspecified (principal); I69.831 Monoplegia of upper limb following other cerebrovascular disease affecting right dominant side; I69.820 Aphasia following other cerebrovascular disease; I69.819 Unspecified symptoms and signs involving cognitive functions following other cerebrovascular disease; E11.9 Type 2 diabetes mellitus without complications; I10 Essential (primary) hypertension; E78.5 Hyperlipidemia, unspecified; F17.290 Nicotine dependence, other tobacco product, uncomplicated; E66.9 Obesity, unspecified; Z68.34 Body mass index [BMI] 34.0-34.9, adult; Z79.82 Long term (current) use of aspirin; M79.7 Fibromyalgia; G47.33 Obstructive sleep apnea (adult) (pediatric)
CPT/HCPCS: 36415; 36416; 70450; 70496; 70498; 80053; 80061; 82962; 83036; 84443; 85025; 85610; 85730; 87635; 92523; 92610; 93005; 94660; 96360; 96361; 96372; 97116; 97162; 97165; 99285; C8929; G0378; J1815; Q9967

== ENCOUNTER 2023-04-19 10:26 | Emergency (ER) | payer MEDICARE, MEDICAID, SELFPAY ==
[2023-04-19 10:27] VITALS: BP 150/89; PULSE 62; TEMP 36.6; O2SAT 96
--- NOTE | 2023-04-19 10:40 | XRR_ITS ---
PROCEDURE INFORMATION: Exam: XR Chest Exam date and time: 04/19/2023 10:46 AM Age: 72 years old Clinical indication: Other: Weakness TECHNIQUE: Imaging protocol: Radiologic exam of the chest. Views: 1 view. COMPARISON: CT angio headneck* [id number] 04/17/2023 2:31 PM FINDINGS: Lungs: Unremarkable. No consolidation. Pleural spaces: Unremarkable. No pleural effusion. No pneumothorax. Heart/Mediastinum: Unremarkable. No cardiomegaly. Bones/joints: Unremarkable. XR/XR chest 1V portable [id number] IMPRESSION: No acute findings.
--- NOTE | 2023-04-19 10:40 | CTR_ITS ---
PROCEDURE INFORMATION: Exam: CT Head Without Contrast Exam date and time: 04/19/2023 10:55 AM Age: 72 years old Clinical indication: Other: Weakness TECHNIQUE: Imaging protocol: Computed tomography of the head without contrast. Radiation optimization: All CT scans at this facility use at least one of these dose optimization techniques: automated exposure control; mA and/or kV adjustment per patient size (includes targeted exams where dose is matched to clinical indication); or iterative reconstruction. REPORTING DATA: Count of CT and Cardiac NM exams in prior 12 months: This patient has received 2 known CTs and 0 known cardiac nuclear medicine studies in the 12 months prior to the current study. COMPARISON: CT head thrombolytic [id number] 04/17/2023 11:53 AM RADIATION DOSE METRICS: Total DLP (mGy-cm): 1156.9 FINDINGS: Brain: There is mild small vessel disease. There is no evidence of acute parenchymal hemorrhage, extra-axial collection, or acute infarction. There is no mass effect, midline shift, or downward herniation. Cerebral ventricles: No ventriculomegaly. Paranasal sinuses: Visualized sinuses are unremarkable. No fluid levels. Mastoid air cells: Visualized mastoid air cells are well aerated. Bones/joints: Unremarkable. No acute fracture. Soft tissues: Unremarkable. CT/CT head wo con* [id number] IMPRESSION: Mild small vessel disease. No evidence of acute intracranial process.
[2023-04-19 10:51] LABS: Basophils % 0.3 %; Eosinophils # 0.2 10^3/uL (0.0-0.8); Eosinophils % 2.1 %; Hematocrit 43.7 % (37-53); Lymphocytes # 1.2 10^3/uL (0.8-4.8); Lymphocytes % 15.4 %; Mean Corpuscular HGB Conc 35.5 g/dL (30-55); Mean Corpuscular Hemoglobin 30.9 pg (27-33); Mean Corpuscular Volume 87.2 fl (82-101); Mean Platelet Volume 10.2 fL (7.4-10.4); Monocytes # 0.4 10^3/uL (0.2-0.9); Monocytes % 5.7 %; Neutrophils % 76.1 %; Nucleated Red Blood Cells % 0 %; Platelet Count 222 10^3/cmm (157-399); Red Blood Count 5.01 10^6/uL (3.85-5.65); Red Cell Distribution Width 12.2 % (12.1-15.1); White Blood Count 7.74 10^3/uL (3.29-11.43)
[2023-04-19 10:59] LABS: INR 0.99 (0.8-1.2)
--- NOTE | 2023-04-19 11:04 | PC.PHAR ---
pt states he takes care of his own medications-pt states his meds are the same as when he was here on 04/17/23-pt states he hasnt started taking the two medications he was discharged with on 04/18/23 pt states he normally gets his meds at [facility] but states they were closed on sat so on his discharge he had it sent to [facility] and was told the company driver would stop him by there but states the company driver wouldnt stop so hasnt started plavix 75mg daily written 04/18/23 and atorvastatin 40mg take 80mg hs written 04/18/23 pts discharge order has zocor 20mg qd prn as dced-medications entered are what was on his previously done med rec on 04/17/23
--- NOTE | 2023-04-19 11:04 | PC.NURSE ---
This RN assumed care of pt from JESSICA Carpenter @ 1100
[2023-04-19 11:13] LABS: Alanine Aminotransferase 32 U/L (0-41); Albumin Level 4.6 g/dL (3.5-5.2); Alkaline Phosphatase 47 U/L (40-130); Anion Gap 15.9 (5-19); Aspartate Amino Transferase 30 U/L (0-40); Blood Urea Nitrogen 11 mg/dL (8-23); Calcium 8.9 mg/dL (8.5-10.5); Carbon Dioxide 26 mmol/L (22-29); Chloride 100 mmol/L (98-107); Globulin 2.5 g/dL (1.3-4.6); Glucose 153 mg/dL (65-115); Osmolality Calculated 288 mOsm/kg (285-295); Potassium 3.9 mmol/L (3.5-5.1); Sodium 138 mmol/L (136-145); Total Bilirubin 0.9 mg/dL (0.15-1.2); Total Protein 7.1 g/dL (6.6-8.7)
--- NOTE | 2023-04-19 11:28 | W.ED.NEUROSD ---
HPI - Neuro Symptoms/Deficit General: Chief Complaint: Neuro Symptoms/Deficit Stated Complaint: STROKE LIKE SYMPTOMS Time Seen by Provider: 04/19/23 10:30 Source: patient and EMS Mode of arrival: EMS Limitations: no limitations History of Present Illness: 72-year-old male he has a history of a stroke in the past he is got a stutter from that previous stroke he was seen here 2 days ago for possible stroke was discharged yesterday had a normal work-up he states this morning and had some slight left-sided weakness he felt like he was stuttering more than normal to the weakness is since resolved he has been ambulatory. He denies any headache denies any worsening improving factors. Associated symptoms: Deny chest pain, headache(s), nausea or vomiting Review of Systems Const: Denies: fever(s), chills, body aches or change in appetite Eyes: Denies: blurry vision or eye discomfort ENMT: Denies: throat pain or dental pain Card: Denies: chest pain Resp: Denies: dyspnea GI: Denies: abdominal pain, nausea, vomiting or diarrhea Musc: Denies: neck pain or back pain Skin/Breast: Denies: rash Neuro: Reports: numbness in extremities and Slurred speech present; Denies: headache(s) PFSH ED PFSH: Medical History Abnormal skin growth left preauricular ear 1cm x0.75 growth, Punch Bx 09/19/2021 2mm Allergic rhinitis due to allergen CAD (coronary artery disease) CAP (community acquired pneumonia) Diabetes mellitus Dizziness and giddiness Dyslipidemia associated with type 2 diabetes mellitus Fibromyalgia Hypertension Migraine headache Obesity (BMI 30-39.9) LESLIE on CPAP Psoriasis PTSD (post-traumatic stress disorder) Sleep apnea Surgical History History of arthroscopy of right knee History of carpal tunnel release S/P wrist surgery SEVERED TENDON Family History Father , at age 58 Blood transfusion reaction hiv due to blood transfusion Mother , at age 75 Hypertension Social History Smoking and tobacco status: current every day smoker pipe Alcohol intake: current Alcohol intake frequency: few times a month Substance/Drug Use: never Marital status: Current occupational status: retired NIH stroke score NIHSS: Level Of Consciousness - 1a: 0 Level Of Consciousness Questions - 1b: Both Correct Level Of Consciousness Commands - 1c: Both Correct Best Gaze - 2: Normal Visual Egan - 3: No Visual Loss Facial Palsy - 4: Normal Motor Arm Right - 5: No Drift Motor Arm Left - 5: No Drift Motor Leg Right - 6: No Drift Motor Leg Left - 6: No Drift Limb Ataxia - 7: Absent Sensory - 8: Normal Best Language - 9: No Aphasia Dysarthia - 10: Normal Extinction And Inattention - 11: 0 Score: Total Score: 0 Physical Exam Const: COMMON NORMALS: no acute distress, patient oriented x3 and healthy appearing HENMT: COMMON NORMALS: normocephalic and atraumatic HEAD & SCALP: normocephalic and atraumatic Eye: COMMON NORMALS: Equal, round and reactive pupils present and EOMs intact bilaterally PUPIL: Yes Equal, round and reactive pupils present Neck/C-Spine: COMMON NORMALS: full ROM and supple Chest: COMMONS NORMALS: normal inspection of the chest and normal palpation of entire chest wall Resp: COMMON NORMALS: normal respiratory effort, No retractions, No use of accessory muscles and clear to auscultation bilaterally AUSCULTATION: clear to auscultation bilaterally Cardio: COMMON NORMALS: regular rate, regular rhythm and No murmurs present (Cardio) RATE: regular rate RHYTHM: regular rhythm GI: COMMON NORMALS: Normal to inspection, nondistended, normoactive bowel sounds present, Soft to palpation, non-tender and no masses PALPATION: Yes Soft to palpation Extremity: COMMON NORMALS: normal to inspection and full ROM Neuro: COMMON NORMALS: patient oriented x3, moves all extremities and no focal motor deficits CRANIAL NERVES: Yes CN normal except as noted SPEECH: speech normal GAIT: Yes Normal gait present MOTOR EXAM: 5/5 motor strength present throughout Psych: COMMON NORMALS: mental status grossly normal, Normal thought process present and cooperative THOUGHT PROCESS: Normal thought process present Skin: COMMON NORMALS: no rashes or lesions noted and no wounds GENERAL SKIN EXAM: no rashes or lesions noted Course Vital Signs: Vital signs: Vital Signs Temperature 97.9 F 04/19/23 10:27 Pulse Rate 62 04/19/23 10:27 Blood Pressure 150/89 04/19/23 10:27 Pulse Oximetry 96 04/19/23 10:27 Oxygen Delivery Me thod Room Air 04/19/23 10:27 MDM - Neuro Symptoms/Deficit Medical Decision Making Patient presents for some stuttering along with some slight weakness that since resolved he does have some chronic stuttering is at his baseline he has no signs of acute stroke here was just admitted he is on baby aspirin and a statin he is to follow-up with neurology return if worsening he is ambulatory here he is understands agrees plan Lab Data 04/19/23 10:01 04/19/23 10:01 Radiology Impressions Chest X-Ray 04/19/23 10:40 IMPRESSION: No acute findings. Head CT 04/19/23 10:40 IMPRESSION: Mild small vessel disease. No evidence of acute intracranial process. Laboratory Results WBC 7.74 10^3/uL (3.29-11.43) 04/19/23 10:01 RBC 5.01 10^6/uL (3.85-5.65) 04/19/23 10:01 Hgb 15.50 g/dL (11.27-16.99) 04/19/23 10:01 Hct 43.7 % (37-53) 04/19/23 10:01 MCV 87.2 fl (82-101) 04/19/23 10:01 MCH 30.9 pg (27-33) 04/19/23 10:01 MCHC 35.5 g/dL (30-55) 04/19/23 10:01 RDW 12.2 % (12.1-15.1) 04/19/23 10:01 Plt Count 222 10^3/cmm (157-399) 04/19/23 10:01 MPV 10.2 fL (7.4-10.4) 04/19/23 10:01 Neut % (Auto) 76.1 % 04/19/23 10:01 Lymph % (Auto) 15.4 % 04/19/23 10:01 Bates % (Auto) 5.7 % 04/19/23 10:01 Eos % (Auto) 2.1 % 04/19/23 10:01 Baso % (Auto) 0.3 % 04/19/23 10:01 Neut # (Auto) 5.90 10^3/uL (1.8-7.7) 04/19/23 10:01 Lymph # (Auto) 1.2 10^3/uL (0.8-4.8) 04/19/23 10:01 Bates # (Auto) 0.4 10^3/uL (0.2-0.9) 04/19/23 10:01 Eos # (Auto) 0.2 10^3/uL (0.0-0.8) 04/19/23 10:01 Baso # (Auto) 0.0 10^3/uL (0.0-0.1) 04/19/23 10:01 Nucleated RBC % (auto) 0 % 04/19/23 10:01 Nucleated RBCs # 0.0 /100WBC 04/19/23 10:01 PT 13.40 SECONDS (12.1-14.9) 04/19/23 10:01 INR 0.99 (0.8-1.2) 04/19/23 10:01 Sodium 138 mmol/L (136-145) 04/19/23 10:01 Potassium 3.9 mmol/L (3.5-5.1) 04/19/23 10:01 Chloride 100 mmol/L (98-107) 04/19/23 10:01 Carbon Dioxide 26 mmol/L (22-29) 04/19/23 10:01 Anion Gap 15.9 (5-19) 04/19/23 10:01 BUN 11 mg/dL (8-23) 04/19/23 10:01 Creatinine 0.9 mg/dL (0.7-1.2) 04/19/23 10:01 GFR Calculation Not Reportable 04/19/23 10:01 Glucose 153 mg/dL (65-115) H 04/19/23 10:01 Calculated Osmolality 288 mOsm/kg (285-295) 04/19/23 10:01 Calcium 8.9 mg/dL (8.5-10.5) 04/19/23 10:01 Total Bilirubin 0.9 mg/dL (0.15-1.2) 04/19/23 10:01 AST 30 U/L (0-40) 04/19/23 10:01 ALT 32 U/L (0-41) 04/19/23 10:01 Alkaline Phosphatase 47 U/L (40-130) 04/19/23 10:01 Total Protein 7.1 g/dL (6.6-8.7) 04/19/23 10:01 Albumin 4.6 g/dL (3.5-5.2) 04/19/23 10:01 Globulin 2.5 g/dL (1.3-4.6) 04/19/23 10:01 All radiology interpretation(s) finalized by discharge Discharge Plan Discharge Patient Disposition: Home Clinical Impression: Brain TIA Condition: Stable Prescriptions: No Action (DME) blood-glucose meter Kit See Rx Instructions .ROUTE .MEDSUPPLY Qty: 1 0RF Rx Instructions: As directed cholecalciferol (vitamin D3) 10 mcg (400 unit) capsule 10 mcg PO DAILY nitroglycerin 0.4 mg tablet, sublingual 0.4 mg SUBLINGUAL Q5M PRN (Reason: chest pain) 90 Days Qty: 20 3RF Rx Instructions: do not exceed 3 doses per episode, refill q 3 months 340 B medication fluticasone propionate 50 mcg/actuation spray,suspension 2 spray intranasal BID PRN (Reason: nasal congestion) Qty: 48 3RF amlodipine 5 mg tablet 5 mg PO DAILY Prozac 20 mg capsule 20 mg PO BEDTIME omega 6-mrs-hru-fish oil [Fish Oil] 300-1,000 mg Capsule 1 cap PO DAILY multivitamin Tablet 1 tab PO DAILY Rx Instructions: 340 B medication metformin 500 mg tablet 500 mg PO BID Rx Instructions: 340 B medication metoprolol tartrate 100 mg tablet 100 mg PO BEDTIME Rx Instructions: 340 B medication aspirin [Adult Low Dose Aspirin] 81 mg tablet,delayed release (DR/EC) 81 mg PO DAILY Rx Instructions: 340 B medication triamcinolone acetonide 0.1 % cream 1 applic topical BID PRN (Reason: Rash) Rx Instructions: Use only maximum of two weeks out of each month 340 B medication tamsulosin 0.4 mg capsule 0.4 mg PO DAILY amitriptyline 10 mg tablet 10 mg PO BEDTIME hydrochlorothiazide 25 mg tablet 50 mg PO DAILY Rx Instructions: 340 B medication epinephrine 0.3 mg/0.3 mL auto-injector 0.3 mg IM Q15M PRN (Reason: Allergic Reaction) Rx Instructions: for 2 doses 340 B medication lisinopril 40 mg tablet 40 mg PO DAILY loratadine 10 mg tablet 10 mg PO DAILY [id number] [Fioricet] 50-300-40 mg capsule 1 cap PO Q4H PRN (Reason: migraine headache pain) Rx Instructions: 340 B medication atorvastatin 40 mg Tablet 80 mg PO BEDTIME Qty: 180 0RF Rx Instructions: pt not picked up from [facility] as of 04/19/23 clopidogrel 75 mg Tablet 75 mg PO DAILY Qty: 90 0RF Rx Instructions: pt not picked up from [facility] as of 04/19/23 Discharge Orders: Discharge ED (Routine); Ordered 04/19/23 Ordered By: Seema Palacio Referrals: Williams Kapoor MD [Physician] - 1-3 days Discharge Diet: Advance as tolerated Discharge Activity: Resume usual activity Patient Instructions: Transient Ischemic Attack (ED) Coding Level of Care Code ED Bumper Operator for Lupe Logan
== END 2023-04-19 12:33 | disposition home or self-care (01) ==
PROVIDERS: Emergency Provider Emergency Medicine
DX: G45.9 Transient cerebral ischemic attack, unspecified (principal); Z79.84 Long term (current) use of oral hypoglycemic drugs; Z79.82 Long term (current) use of aspirin; Z79.02 Long term (current) use of antithrombotics/antiplatelets; F17.210 Nicotine dependence, cigarettes, uncomplicated; I25.10 Atherosclerotic heart disease of native coronary artery without angina pectoris; E11.9 Type 2 diabetes mellitus without complications; E78.5 Hyperlipidemia, unspecified; I10 Essential (primary) hypertension
CPT/HCPCS: 70450; 71045; 80053; 85025; 85610; 99285

== ENCOUNTER → 2023-05-06 13:07 | Outpatient (BNVA) | payer MEDICARE, MEDICAID, SELFPAY | PROVIDERS: Visit Provider Psychiatry & Neurology Neurology | DX: I63.9 Cerebral infarction, unspecified (principal); I10 Essential (primary) hypertension; R29.701 NIHSS score 1; F17.290 Nicotine dependence, other tobacco product, uncomplicated | CPT/HCPCS: 99212 ==